=== PATIENT | female | born 1980 | race Asian ===

== ENCOUNTER 2021-11-12 20:48 | Emergency (ER) | payer SELFPAY ==
[~2021-11-12] VITALS: Ht 162.6 cm; Wt 54.4 kg
--- NOTE | 2021-11-12 21:41 | NUR ---
TO ER BED 10. BIBS C/O NON RADIATING RLQ PAIN X 3 DAYS. TOOK ADVIL AND APPLIED COOL PACK WITH LITTLE RELIEF. DENIES ANY N/V, FEVER, OR CHILLS. NO REBOUND TENDERNESS NOTED. CHANGED INTO GOWN. CONNECTED TO MONITOR. AWAITING MD GREEN
--- NOTE | 2021-11-12 21:44 | NUR ---
URINE COLLECTED AND SENT TO LAB
--- NOTE | 2021-11-12 21:47 | NUR ---
LAB AT BEDSIDE
[2021-11-12 22:17] LABS: BILIRUBIN,URINE NEGATIVE (NEGATIVE); COLOR,URINE YELLOW (YELLOW); LEUKOCYTE ESTERASE ,URINE NEGATIVE (NEGATIVE); NITRITE, URINE NEGATIVE (NEGATIVE); PROTEIN,URINE NEGATIVE (NEGATIVE); UGLUCOSE NEGATIVE (NEGATIVE); UROBILINOGEN,URINE 0.2 EU/dL (0.2)
[2021-11-12 22:20] LABS: BASOPHILS % (AUTO) 0.3 % (0.0-2.0); EOSINOPHILS % (AUTO) 1.9 % (0.0-6.0); HEMATOCRIT 38 % (33-45); HEMOGLOBIN 12.8 g/dL (11.5-14.8); LYMPHOCYTES # (AUTO) 1.5 K/uL (0.8-4.8); LYMPHOCYTES % (AUTO) 25.5 % (20.0-44.0); MEAN CORPUSCULAR HGB CONC 34 g/dl (31.0-36.0); MEAN CORPUSCULAR VOLUME 87 fL (82-100); MONOCYTES # (AUTO) 0.4 K/uL (0.1-1.30); NEUTROPHILS # (AUTO) 3.8 K/uL (1.8-8.9); NEUTROPHILS % (AUTO) 65.3 % (43.0-81.0); PLATELET COUNT (AUTO) 291 K/uL (150-450); RED BLOOD CELL COUNT(AUTO) 4.37 MIL/uL (4.0-5.2); WHITE BLOOD COUNT (AUTO) 5.9 K/uL (4.3-11.0)
[2021-11-12 22:32] LABS: CALCIUM, SERUM 8.8 mg/dL (8.5-10.1); CREATININE 0.6 mg/dL (0.6-1.3); POTASSIUM 3.3 mmol/L (3.5-5.1)
[2021-11-12 22:38] LABS: BILIRUBIN,DIRECT 0.1 mg/dL (0.0-0.2); BILIRUBIN,TOTAL 0.3 mg/dL (0.2-1.0); TOTAL PROTEIN, SERUM 7.9 g/dL (6.4-8.2)
[2021-11-12] MEDS ORDERED: POTASSIUM CHLORIDE 20 MEQ TAB.PRT.SR PO ONE (23:07)
[2021-11-12] MEDS ORDERED: KETOROLAC TROMETHAMINE 15 MG/ML VIAL ONE (23:07)
[2021-11-12] MEDS: POTASSIUM CHLORIDE 20 MEQ TAB.PRT.SR PO ONE (23:16)
[2021-11-12] MEDS: KETOROLAC TROMETHAMINE INJ 30 MG/ML VIAL IV ONE (23:16)
[2021-11-12] MEDS: KETOROLAC TROMETHAMINE INJ 60 MG/2 ML VIAL IM ONE (23:17)
--- NOTE | 2021-11-13 01:54 | NUR ---
CALLED [facility] FOR US READ
[2021-11-13] MEDS ORDERED: NAPR-1164 PO (02:34)
[2021-11-13 02:38] VITALS: BP 121/87
--- NOTE | 2021-11-13 02:38 | NUR ---
Patient discharged to home in stable condition. Written and verbal after care instructions given. Patient verbalizes understanding of instruction.
== END 2021-11-13 02:43 | disposition home or self-care (01) ==
LOC: ER 20:53
DX: D25.9 Leiomyoma of uterus, unspecified (principal); E87.6 Hypokalemia; Z60.2 Problems related to living alone
CPT/HCPCS: 36415; 74176; 76856; 80048; 80076; 81003; 83735; 84703; 85025; 96372; 99284; J1885